=== PATIENT | female | born 1945 | race Caucasian/White ===

== ENCOUNTER 2017-03-05 08:21 | Emergency (ER) | payer MEDICARE, BC ==
[~2017-03-05] VITALS: Ht 154.9 cm; Wt 82.0 kg
[~2017-03-05 08:21] MED LIST: ANAS1TAB PO; GEMF600T60 PO; HYDR12.53 PO; INSU100I13 SC; LOSA25TA5 PO; NAPR-260 PO; SITA1TBM4 PO
[2017-03-05 08:26] VITALS: Ht 154.9 cm; Wt 82.0 kg
[2017-03-05] MEDS ORDERED: morphine 4 MG/ML VIAL IV STA (08:57)
[2017-03-05] MEDS ORDERED: ONDANSETRON 4 MG INJ IV STA (08:57)
[2017-03-05 09:21] LABS: BASOPHILS % 0.2 % (0.0-2.0); EOSINOPHILS # 0.1 10^3/ul (0.0-0.5); EOSINOPHILS % 0.8 % (0.0-7.0); HEMATOCRIT 36.2 % (37.0-47.0); HEMOGLOBIN 11.9 g/dl (12.0-16.0); LYMPHOCYTES # 1.3 10^3/ul (0.8-2.9); LYMPHOCYTES % 21.5 % (15.0-51.0); MEAN CORPUSCULAR HEMOGLOBIN 28.3 pg (29.0-33.0); MEAN CORPUSCULAR HGB CONC 32.9 g/dl (32.0-37.0); MEAN CORPUSCULAR VOLUME 86.2 fl (82.0-101.0); MEAN PLATELET VOLUME 9.2 fl (7.4-10.4); MONOCYTE # 0.3 10^3/ul (0.3-0.9); NEUTROPHIL # 4.4 10^3/ul (1.6-7.5); NEUTROPHILS % 72.2 % (39.0-77.0); PLATELET COUNT 305 10^3/UL (140-415); RED CELL DISTRIBUTION WIDTH 14.2 % (11.5-14.5); WHITE BLOOD COUNT 6.1 10^3/ul (4.8-10.8)
[2017-03-05 09:43] LABS: ALANINE AMINOTRANSFERASE 35 IU/L (13-69); ALBUMIN/GLOBULIN RATIO 1.14; ALKALINE PHOSPHATASE 102 IU/L (42-121); ANION GAP 17 (8-16); ASPARTATE AMINO TRANSFERASE 26 IU/L (15-46); BILIRUBIN,INDIRECT 0.3 mg/dl (0-1.1); BILIRUBIN,TOTAL 0.3 mg/dl (0.2-1.3); BLOOD UREA NITROGEN 14 mg/dl (7-20); CALCIUM 9.7 mg/dl (8.4-10.2); CARBON DIOXIDE 27 mmol/L (21-31); CHLORIDE 105 mmol/L (97-110); CREATININE 0.72 mg/dl (0.44-1.00); GLUCOSE 121 mg/dl (70-220); POTASSIUM 4.4 mmol/L (3.5-5.1); SODIUM 145 mmol/L (135-144); TOTAL PROTEIN 7.5 g/dl (6.1-8.1)
--- NOTE | 2017-03-05 09:58 | RADRPT ---
PROCEDURE: XR Chest. CLINICAL INDICATION: Fall. Chest pain. TECHNIQUE: Single AP portable chest. COMPARISON: 04/14/2015. Chest x-ray FINDINGS: The cardiomediastinal silhouette is within normal limits of size.The lungs are clear without pleura l effusion or focal consolidation. No pneumothorax. The osseous structures and soft tissues are unre markable. IMPRESSION: 1. No evidence for active cardiopulmonary disease. RPTAT:AAJJ Physician Jo Date Time Electronically viewed and signed by Physician Jo on 03/05/2017 09:58 CHIQUIS/
[2017-03-05 09:59] LABS: TROPONIN-I < 0.012 ng/ml (0.00-0.12)
[2017-03-05 10:00] LABS: ADD UMIC YES; UR ASCORBIC ACID NEGATIVE (NEGATIVE); UR BACTERIA FEW /HPF (NONE SEEN); UR BILIRUBIN (Dip) NEGATIVE (NEGATIVE); UR BLOOD (Dip) NEGATIVE (NEGATIVE); UR BUDDING YEAST FEW /HPF (NONE SEEN); UR CLARITY CLOUDY (CLEAR); UR COLOR YELLOW (YELLOW); UR GLUCOSE (Dip) NEGATIVE (NEGATIVE); UR KETONES (Dip) NEGATIVE (NEGATIVE); UR LEUKOCYTE ESTERASE (Dip) 3+ Leu/ul (NEGATIVE); UR NITRITE (Dip) NEGATIVE (NEGATIVE); UR RBC 13 /HPF (0-5); UR TOTAL PROTEIN (Dip) 2+ mg/dl (NEGATIVE); UR UROBILINOGEN (Dip) NEGATIVE (NEGATIVE)
--- NOTE | 2017-03-05 10:25 | RADRPT ---
PROCEDURE: XR Knee. CLINICAL INDICATION: Right knee pain. TECHNIQUE: Three views of the right knee are available for review. COMPARISON: None available FINDINGS: The osseous structures, articular spaces, and surrounding soft tissues of the right knee are all unr emarkable. No acute fracture or dislocation is seen. A fabella is noted. No radiopaque foreign bod y is identified. Alignment is anatomic. IMPRESSION: No acute fracture or dislocation is seen. RPTAT: JJ .Leif Ball MD, Date Time Electronically viewed and signed by .Leif Ball MD, on 03/05/2017 10:25 .A/
[2017-03-05] MEDS ORDERED: HYDROCODONE/APAP (10/325) TAB PO ONE (11:00)
--- NOTE | 2017-03-05 11:43 | RADRPT ---
PROCEDURE: CT Cervical Spine without contrast. CLINICAL INDICATION: Fall. TECHNIQUE: A CT of the cervical spine was performed on a CT scanner utilizing thin section axial images from the skull base through the thoracic inlet. Sagittal and coronal reformatted images were made. The CTDIvol is 66.22 mGy and the DLP is 1186.08 mGycm. One or more of the following dose re duction techniques were utilized: Automated exposure control, adjustment of the mA and/or kV accord ing to patient size, use of iterative reconstruction technique. DICOM images are available. COMPARISON: No prior studies are available for comparison. FINDINGS: Straightening of the normal cervical lordosis. The vertebral bodies are normal in height with mild d emineralization compatible with osteopenia . No fracture or dislocation. No evidence of traumatic berger bluxation. C1-2: Normal atlanto-occipital and atlantoaxial articulation. C2-3: The disc is normal in height. Marked hypertrophic left facet joint arthropathy. No significant disk bulge or protrusion is evident. There is no central canal stenosis or foraminal narrowing. C3-4: The disc is normal in height. No significant disk bulge or protrusion is evident. There is no central canal stenosis or foraminal narrowing. C4-5: The disc is normal in height. 2 mm left central disc protrusion. There is no central canal st enosis or foraminal narrowing. C5-6: Mild disc space narrowing with anterior endplate spurring. Left central/subarticular disc oste ophyte complex measuring 4 mm in AP dimension narrowing the left subarticular recess. Mild left fora joelle stenosis . Moderate central canal stenosis of 7 mm. C6-7: Moderate disc space narrowing and anterior endplate spurring No significant disk bulge or pro trusion is evident. There is no central canal stenosis or foraminal narrowing. C7-T1: The disc is normal in height. No significant disk bulge or protrusion is evident. There is no central canal stenosis or foraminal narrowing. No paravertebral soft tissue abnormality. The lung apices are clear. IMPRESSION: 1. No acute fracture or evidence of traumatic subluxation. No paravertebral soft tissue abnormality. 2. 2 mm left central disc protrusion at C4-C5 without stenosis. 3. 4 mm left central/subarticular disc osteophyte complex narrowing the left subarticular recess an d resulting in mild left foraminal stenosis. Moderate central canal stenosis of 7 mm. 4. No paravertebral soft tissue abnormality. RPTAT:AAJJ Jalil Trevizo Physician Date Time Electronically viewed and signed by Jalil Trevizo Physician on 03/05/2017 11:43 CHIQUIS/
--- NOTE | 2017-03-05 12:25 | RADRPT ---
PROCEDURE: CT Brain without contrast. CLINICAL INDICATION: Fall, pain. TECHNIQUE: A CT of the brain without contrast was performed utilizing axial sections from the skul l base through the vertex. One or more the following does reduction techniques were utilized: Automa lv exposure control, adjustment of the mA/ or kV according to patient's size, or use of iterative r econstruction technique. Total exam CTDIvol is 44.03 MGy and DLP is 720.23 mGy-cm. DICOM images are available. COMPARISON: Brain CT 04/14/2015. FINDINGS: The ventricles and sulci are mildly prominent indicative of volume loss. There is no intracranial h emorrhage, mass effect or midline shift. No abnormal intra-axial or extra-axial fluid collections a re seen. The griffith/white matter differentiation is well preserved. Partially empty and expanded sella turcica is noted. There are mild foci of hypoattenuation in the white matter, which are nonspecific in etiology but li della reflect chronic small vessel ischemic changes. There are mild intracranial vascular calcificati ons consistent with atherosclerosis. The visualized paranasal sinuses are essentially clear. IMPRESSION: 1. No acute intracranial hemorrhage, transcortical infarction or mass effect. 2. Mild intracranial atherosclerosis and chronic small vessel ischemic changes. 3. Partially empty and expanded sella turcica. 4. Mild generalized cerebral volume loss. RPTAT: HH .Jaclyn Youngblood MD, MD Date Time Electronically viewed and signed by .Jaclyn Youngblood MD, MD on 03/05/2017 12:25 .N/
[2017-03-05] MEDS ORDERED: HYDR-906 PO (12:47)
--- NOTE | 2017-03-05 12:49 | ERD ---
ER Documentation Chief Complaint Chief Complaint Pt with presents with facial pain, does not remember why she fell. HPI Patient is a 71-year-old female with diabetes and Parkinsons who presents with a fall. She fell this morning at 8 [address] while [address]. She is unsure as to how it happened. She has right-sided knee pain and facial pain as she fell onto her face. She has no treatment as of yet. Her primary doctor is Dr. Vanessa Hylton. ROS All systems reviewed and are negative except as per history of present illness. Medications Home Meds Active Scripts Nitrofurantoin Monohyd Macrocr* (Macrobid*) 100 Mg Capsr, 100 MG PO BID for 7 Days, CAP Prov:DANII BONNER MD 03/05/17 Hydrocodone/Acetaminophen ([place] 5-325 Tablet) 1 Each Tablet, 1 TAB PO Q6H Y for PAIN, #7 TAB Prov:DANII BONNER MD 03/05/17 Naproxen* (Naprosyn*) 500 Mg Tablet, 500 MG PO BID Y for PAIN AND/OR INFLAMMATION, #30 TAB Prov:KIMBERLY JOHNSON MD 04/14/15 Reported Medications Gemfibrozil* (Gemfibrozil*) 600 Mg Tablet, 600 MG PO DAILY, #30 04/14/15 Losartan Potassium* (Losartan Potassium*) 25 Mg Tablet, 25 MG PO DAILY, #90 04/14/15 Sitagliptin Phos-Metformin Hcl (Janumet XR) 50-1,000 Mg Tbmp.24hr, 1 TAB PO DAILY, #50 04/14/15 Hydrochlorothiazide (Hydrochlorothiazide) 12.5 Mg Capsule, 12.5 MG PO DAILY, #30 04/14/15 Anastrozole* (Arimidex*) 1 Mg Tablet, 1 MG PO DAILY, #30 04/14/15 Insuln Asp Prt/Insulin Aspart* (Novolog Mix 70-30 Flexpen*) 100 Units/Ml Pen, 1- 20 UNIT SC BID, EA 04/14/15 Allergies Allergies: Coded Allergies: Penicillins (Unverified Allergy, Severe, 04/14/15) egg (Verified Allergy, Unknown, 04/14/15) PMhx/Soc History of Surgery: Yes (GALLBLADDER,APPENDECTOMY,RIGHT BREAST SX) Anesthesia Reaction: No Hx Neurological Disorder: No Hx Respiratory Disorders: No Hx Cardiac Disorders: Yes (HTN) Hx Psychiatric Problems: No Hx Miscellaneous Medical Probl: Yes (DM) Hx Alcohol Use: No Hx Substance Use: No Hx Tobacco Use: No Smoking Status: Never smoker FmHx Family History: No diabetes Physical Exam Vitals Vital Signs Date Time Temp Pulse Resp B/P Pulse Ox O2 Delivery O2 Flow Rate FiO2 03/05/17 08:26 98.1 98 18 151/58 100 Physical Exam Const: No acute distress Head: Atraumatic Eyes: Normal Conjunctiva ENT: Normal External Ears, Nose and Mouth. Neck: Full range of motion..~ No meningismus. Resp: Clear to auscultation bilaterally Cardio: Regular rate and rhythm, no murmurs Abd: Soft, non tender, non distended. Normal bowel sounds Skin: Abrasion of the right knee Back: No midline or flank tenderness Ext: No cyanosis, or edema Neur: Awake and alert, resting tremor of Parkinson's Result Diagram: 03/05/17 0900 03/05/17 0900 Results 24 hrs Laboratory Tests Test 03/05/17 09:00 03/05/17 09:15 White Blood Count 6.110^3/ul Red Blood Count 4.2010^6/ul Hemoglobin 11.9g/dl Hematocrit 36.2% Mean Corpuscular Volume 86.2fl Mean Corpuscular Hemoglobin 28.3pg Mean Corpuscular Hemoglobin Concent 32.9g/dl Red Cell Distribution Width 14.2% Platelet Count 83578^3/UL Mean Platelet Volume 9.2fl Neutrophils % 72.2% Lymphocytes % 21.5% Monocytes % 5.0% Eosinophils % 0.8% Basophils % 0.2% Nucleated Red Blood Cells % 0.0/100WBC Neutrophils # 4.410^3/ul Lymphocytes # 1.310^3/ul Monocytes # 0.310^3/ul Eosinophils # 0.110^3/ul Basophils # 0.010^3/ul Nucleated Red Blood Cells # 0.010^3/ul Sodium Level 145mmol/L Potassium Level 4.4mmol/L Chloride Level 105mmol/L Carbon Dioxide Level 27mmol/L Anion Gap 17 Blood Urea Nitrogen 14mg/dl Creatinine 0.72mg/dl Glucose Level 121mg/dl Calcium Level 9.7mg/dl Total Bilirubin 0.3mg/dl Direct Bilirubin 0.00mg/dl Indirect Bilirubin 0.3mg/dl Aspartate Amino Transf (AST/SGOT) 26IU/L Alanine Aminotransferase (ALT/SGPT) 35IU/L Alkaline Phosphatase 102IU/L Troponin I < 0.012ng/ml Total Protein 7.5g/dl Albumin 4.0g/dl Globulin 3.50g/dl Albumin/Globulin Ratio 1.14 Lipase 110U/L Urine Color YELLOW Urine Clarity CLOUDY Urine pH 6.0 Urine Specific Dameron 1.010 Urine Ketones NEGATIVEmg/dL Urine Nitrite NEGATIVEmg/dL Urine Bilirubin NEGATIVEmg/dL Urine Urobilinogen NEGATIVEmg/dL Urine Leukocyte Esterase 3+Gael/ul Urine Microscopic RBC 13/HPF Urine Microscopic WBC > 182/HPF Urine Bacteria FEW/HPF Urine Yeast (Budding) FEW/HPF Urine Hemoglobin NEGATIVEmg/dL Urine Glucose NEGATIVEmg/dL Urine Total Protein 2+mg/dl Current Medications Medications (Trade) Dose Ordered Sig/Adrian Route PRN Reason Start Time Stop Time Status Last Admin Dose Admin Morphine Sulfate (morphine) 4 mg ONCE STAT IV 03/05/17 08:57 03/05/17 08:58 DC Ondansetron HCl (Zofran Inj) 4 mg ONCE STAT IV 03/05/17 08:57 03/05/17 08:58 DC Acetaminophen/ Hydrocodone Bitart ([place] (10/325)) 1 tab ONCE ONCE PO 03/05/17 11:00 03/05/17 11:01 DC 03/05/17 10:56 Procedures/MDM EKG read by me: Rate/Rhythm: Regular rate and rhythm at a rate of 91 Intervals: Normal Impression: No evidence of ischemia or arrhythmia CT brain showed no traumatic injury per radiology. CT cervical spine shows no traumatic injury per radiology. Knee x-ray shows no fracture or dislocation per radiology. Chest x-ray negative per radiology. Patient is a 71-year-old female presents with a fall. It was unclear as to how she felt that she had a full workup with EKG, laboratory studies, CT scans, and urinalysis. She was found to have a urine infection but otherwise her CT scans , x-rays, and laboratory studies are normal. I believe outpatient management is appropriate and her fall was most likely related to a trip and fall given her Parkinson's disease. I doubt syncope or ventricular arrhythmia. I believe outpatient management is appropriate at this time. The patient will need to follow-up closely with her primary doctor within 24 hours for reevaluation. She can return sooner for any worsening symptoms. Departure Diagnosis: Primary Impression: Fall Encounter type: initial encounter Qualified Code: W19.XXXA - Fall, initial encounter Additional Impressions: Cystitis Anemia Anemia type: unspecified type Qualified Code: D64.9 - Anemia, unspecified type Condition: Fair Patient Instructions: Fall, Uncertain Cause Referrals: VANESSA HYLTON A (PCP) Additional Instructions: Llame al doctor MAANA y art kim LIDIA PARA DENTRO DE 1-2 L[place].Dgale a la secretaria que nosotros le instruimos hacer esta lidia.Avise o llame si berger condicin se empeora antes de la lidia. Regresa aqui si peor o no mejor. DANII BONNER MD Mar 05, 2017 12:49
[2017-03-05] MEDS ORDERED: NITR-58 PO (12:53)
== END 2017-03-05 13:26 | disposition home or self-care (01) ==
LOC: E/R 08:21
DX: S80.211A Abrasion, right knee, initial encounter (principal); N30.90 Cystitis, unspecified without hematuria; D64.9 Anemia, unspecified; E11.9 Type 2 diabetes mellitus without complications; I10 Essential (primary) hypertension; G20 Parkinson's disease; W18.39XA Other fall on same level, initial encounter; Y92.9 Unspecified place or not applicable; Z79.4 Long term (current) use of insulin
CPT/HCPCS: 70450; 71010; 72125; 73562; 80053; 81001; 83690; 84484; 85025; 93005